=== PATIENT | male | born 1970 | race Caucasian/White ===

== ENCOUNTER 2016-10-14 03:50 | Emergency (ER) | payer SELFPAY ==
[2016-10-14] MEDS ORDERED: Ibuprofen 400 MG TAB ONE (04:22)
[2016-10-14] MEDS ORDERED: KETOROLAC 30 MG/ML VIAL ONE (08:58)
== END 2016-10-14 05:08 | disposition home or self-care (01) ==
LOC: ER 03:50
DX: S93.491A Sprain of other ligament of right ankle, initial encounter (principal); X50.0XXA Overexertion from strenuous movement or load, initial encounter; Y92.63 Factory as the place of occurrence of the external cause